=== PATIENT | female | born 1965 | race Caucasian/White ===

== ENCOUNTER 2023-08-02 04:30 | Day surgery (SDC) | payer BC ==
[2023-07-31 09:53] VITALS: BMI 23.3
[2023-08-02 08:39] VITALS: TEMP 98.4
[2023-08-02 08:50] VITALS: RESP 20
[2023-08-02 09:55] VITALS: BP 148/74; PULSE 64
== END 2023-08-02 09:55 | disposition home or self-care (01) ==
LOC: JASU-ENDO 04:30
PROVIDERS: ATTEND Internal Medicine Gastroenterology
PROC: 0DBK8ZX Excision of Ascending Colon, Via Natural or Artificial Opening Endoscopic, Diagnostic (ICD-10-PCS; principal; 2023-08-02 08:00)
DX: Z12.11 Encounter for screening for malignant neoplasm of colon (principal); D12.2 Benign neoplasm of ascending colon; K57.30 Diverticulosis of large intestine without perforation or abscess without bleeding; Z86.010 Personal history of colon polyps; I10 Essential (primary) hypertension